=== PATIENT | female | born 1990 | race African-American/Black ===

== ENCOUNTER 2016-12-29 21:23 | Emergency (ER) | payer OTHER ==
[~2016-12-29] VITALS: Ht 167.6 cm; Wt 84.4 kg
[~2016-12-29 21:23] MED LIST: APAP500 PO; BACTRIM DS TAB1 EACH PO; CLEOCIN HCL150 MG PO; COLACE 100 MG100 MG; DEPO-SUBQ104 MG/0.6; FLAGYL500 MG PO; HIBICLENS120 ML TP; HYDROCODONE-AP1 EAC6 PO; IBUPROFEN 800800 M1; IROSPAN 24/6 T1 EACH; NAPROSYN500 MG PO; NOHOMEMEDICATIONS; NORCO 5-325 TA1 EACH PO; ONDANSETRON HCL4 M2 PO; PENICILLIN VK500 MG PO; PHENADOZ12.5 MG RC; PHENERGAN 25 MG25 M1 PO; PRENATAL PO; PRILOSEC 20 MG20 MG PO; PROMETHAZINE-C120 ML PO; TESSALON PERLE100 MG PO; TRINATE TABLET1 TAB PO; ZANTAC 150MG T150 MG PO; ZOFRAN ODT4 MG PO; ZOFRAN4 MG PO
[2016-12-29] MEDS ORDERED: PREDNISONE 20 M20 MG PO (22:17)
[2016-12-29] MEDS ORDERED: ACETAMINOPHEN-1 EAC1 PO (22:17)
[2016-12-29 22:51] VITALS: BP 130/76
== END 2016-12-29 22:55 | disposition home or self-care (01) ==
LOC: ER 21:23
DX: J20.9 Acute bronchitis, unspecified (principal); F12.90 Cannabis use, unspecified, uncomplicated; Z90.49 Acquired absence of other specified parts of digestive tract

== ENCOUNTER 2017-01-05 20:15 | Emergency (ER) | payer OTHER ==
[~2017-01-05] VITALS: Ht 167.6 cm; Wt 84.4 kg
[~2017-01-05 20:15] MED LIST changes: +ACETAMINOPHEN-1 EAC1 PO; +PREDNISONE 20 M20 MG PO
[2017-01-05 20:58] LABS: EOSINOPHILS 2.6 % (0.0-3.0); HEMATOCRIT 42.4 % (37.0-47.0); HEMOGLOBIN 14.4 gm/dL (12.0-15.0); LYMPHOCYTES 25.3 % (24.0-44.0); MCH 28.6 pg (26.0-34.0); MCHC 33.8 g/dL (28.0-37.0); MCV 84.5 fL (80.0-100.0); MONOCYTES 7.7 % (1.0-8.0); PLATELET COUNT 264 thou/uL (150-400); POLYS 63.4 % (36.0-66.0); RBC 5.02 mil/uL (4.20-5.00); RDW 13.8 % (10.5-14.5); WBC 6.4 thou/uL (4.0-11.0)
[2017-01-05 21:00] LABS: MANUAL DIFF NO
[2017-01-05 21:05] LABS: URINE BILIRUBIN NEGATIVE (Negative); URINE BLOOD TRACE (Negative); URINE COLOR YELLOW; URINE GLUCOSE-RANDOM* NEGATIVE (Negative); URINE KETONES TRACE (Negative); URINE NITRITE NEGATIVE (Negative); URINE PROTEIN (DIPSTICK) 1+ (Negative); URINE SPECIFIC GRAVITY >= 1.030 (1.003-1.035)
[2017-01-05 21:13] LABS: CALCIUM 9.2 mg/dL (8.5-10.1); CREATININE 0.6 mg/dL (0.6-1.0); POTASSIUM 3.5 mmol/L (3.5-5.1)
[2017-01-05 21:13] LABS: BACTERIA 1-9 Few /HPF (None Seen); CASTS None Seen /LPF (None Seen); CRYSTALS None Seen /LPF (None Seen); SQUAMOUS >10 Many /LPF (0-3); URINE RBC 0-2 Rare /HPF (0-2); URINE WBC 0-5 Rare /HPF (0-5)
[2017-01-05 21:18] LABS: ALBUMIN 4.3 g/dL (3.4-5.0); DIRECT BILIRUBIN 0.1 mg/dL (<0.1-0.3); TOTAL BILIRUBIN 0.4 mg/dL (<0.1-1.0)
[2017-01-05] MEDS ORDERED: ONDANSETRON HCL4 M2 PO (21:43)
[2017-01-05 22:00] VITALS: BP 136/83
== END 2017-01-05 22:07 | disposition home or self-care (01) ==
LOC: ER 20:15
PROVIDERS: Nurse Practitioner
DX: O21.9 Vomiting of pregnancy, unspecified (principal); F15.10 Other stimulant abuse, uncomplicated; Z3A.00 Weeks of gestation of pregnancy not specified; Z90.49 Acquired absence of other specified parts of digestive tract

== ENCOUNTER 2017-01-08 11:37 | Emergency (ER) | payer OTHER ==
[~2017-01-08] VITALS: Ht 160 cm; Wt 84.4 kg
[2017-01-08 12:04] LABS: BASOPHILS 0.4 % (0.0-2.0); EOSINOPHILS 0.9 % (0.0-3.0); HEMOGLOBIN 14.7 gm/dL (12.0-15.0); LYMPHOCYTES 17.4 % (24.0-44.0); MCH 28.8 pg (26.0-34.0); MCHC 34.1 g/dL (28.0-37.0); MCV 84.5 fL (80.0-100.0); PLATELET COUNT 262 thou/uL (150-400); POLYS 74.3 % (36.0-66.0); RBC 5.09 mil/uL (4.20-5.00); RDW 13.6 % (10.5-14.5); WBC 6.8 thou/uL (4.0-11.0)
[2017-01-08 12:07] LABS: MANUAL DIFF NO
[2017-01-08 12:14] LABS: CALCIUM 9.5 mg/dL (8.5-10.1); CREATININE 0.5 mg/dL (0.6-1.0); POTASSIUM 3.3 mmol/L (3.5-5.1)
[2017-01-08 12:18] LABS: ALBUMIN 4.5 g/dL (3.4-5.0); TOTAL BILIRUBIN 0.5 mg/dL (<0.1-1.0); TOTAL PROTEIN 8.6 g/dL (6.4-8.2)
[2017-01-08] MEDS ORDERED: PROMS25 WY RECTAL (13:09)
[2017-01-08] MEDS ORDERED: PHENERGAN 25 MG25 M1 PO (13:09)
[2017-01-08 15:10] VITALS: BP 117/70
== END 2017-01-08 15:11 | disposition home or self-care (01) ==
LOC: ER 11:37
PROVIDERS: Emergency Medicine
DX: O21.0 Mild hyperemesis gravidarum (principal); Z3A.00 Weeks of gestation of pregnancy not specified; Z90.49 Acquired absence of other specified parts of digestive tract

== ENCOUNTER 2017-01-12 15:15 | Emergency (ER) | payer OTHER ==
[~2017-01-12] VITALS: Ht 167.6 cm; Wt 78.9 kg
[~2017-01-12 15:15] MED LIST changes: +PROMS25 WY RECTAL
[2017-01-12 15:58] LABS: ABSOLUTE NEUTROPHILS 8.5 thou/uL (1.4-8.2); BASOPHILS 0.4 % (0.0-2.0); EOSINOPHILS 0.1 % (0.0-3.0); HEMATOCRIT 44.7 % (37.0-47.0); HEMOGLOBIN 15.6 gm/dL (12.0-15.0); LYMPHOCYTES 12.1 % (24.0-44.0); MCV 82.8 fL (80.0-100.0); MONOCYTES 6.5 % (1.0-8.0); PLATELET COUNT 292 thou/uL (150-400); POLYS 80.9 % (36.0-66.0); RDW 13.5 % (10.5-14.5); WBC 10.6 thou/uL (4.0-11.0)
[2017-01-12 16:01] LABS: MANUAL DIFF NO
[2017-01-12 16:04] LABS: CALCIUM 9.9 mg/dL (8.5-10.1); CREATININE 0.7 mg/dL (0.6-1.0); POTASSIUM 3.3 mmol/L (3.5-5.1)
[2017-01-12 19:50] VITALS: BP 135/83
== END 2017-01-12 19:50 | disposition short-term general hospital (02) ==
LOC: ER 15:15
PROVIDERS: Nurse Practitioner
DX: O21.0 Mild hyperemesis gravidarum (principal); E11.9 Type 2 diabetes mellitus without complications; Z3A.00 Weeks of gestation of pregnancy not specified; Z90.49 Acquired absence of other specified parts of digestive tract

== ENCOUNTER 2017-02-12 23:25 | Emergency (ER) | payer OTHER ==
[~2017-02-12] VITALS: Ht 167.6 cm; Wt 84.4 kg
[2017-02-12] MEDS ORDERED: PROMETHAZINE HC25 M1 (23:45)
[2017-02-13 00:12] LABS: URINE BILIRUBIN NEGATIVE (Negative); URINE BLOOD TRACE (Negative); URINE COLOR YELLOW; URINE GLUCOSE-RANDOM* NEGATIVE (Negative); URINE KETONES NEGATIVE (Negative); URINE LEUKOCYTES-REFLEX NEGATIVE (Negative); URINE PROTEIN (DIPSTICK) NEGATIVE (Negative); URINE SPECIFIC GRAVITY 1.025 (1.003-1.035); URINE UROBILINOGEN 0.2 E.U./dl (0.2-1.0)
[2017-02-13 01:49] LABS: ABSOLUTE NEUTROPHILS 5.3 thou/uL (1.4-8.2); BASOPHILS 0.5 % (0.0-2.0); EOSINOPHILS 1.3 % (0.0-3.0); HEMOGLOBIN 13.1 gm/dL (12.0-15.0); LYMPHOCYTES 24.2 % (24.0-44.0); MCH 28.6 pg (26.0-34.0); MCHC 33.5 g/dL (28.0-37.0); MCV 85.4 fL (80.0-100.0); MONOCYTES 6.6 % (1.0-8.0); PLATELET COUNT 250 thou/uL (150-400); POLYS 67.4 % (36.0-66.0); RBC 4.56 mil/uL (4.20-5.00); RDW 13.9 % (10.5-14.5); WBC 7.8 thou/uL (4.0-11.0)
[2017-02-13 01:54] LABS: MANUAL DIFF NO
[2017-02-13 01:59] LABS: CALCIUM 8.8 mg/dL (8.5-10.1); CREATININE 0.3 mg/dL (0.6-1.0); POTASSIUM 4.2 mmol/L (3.5-5.1)
[2017-02-13 02:04] LABS: ALBUMIN 3.3 g/dL (3.4-5.0); TOTAL BILIRUBIN 0.2 mg/dL (<0.1-1.0); TOTAL PROTEIN 6.8 g/dL (6.4-8.2)
[2017-02-13] MEDS ORDERED: PHENERGAN 25 MG25 M1 PO (02:13)
[2017-02-13 02:35] VITALS: BP 128/70
== END 2017-02-13 02:38 | disposition home or self-care (01) ==
LOC: ER 23:25
PROVIDERS: Emergency Medicine
DX: O21.0 Mild hyperemesis gravidarum (principal); F12.10 Cannabis abuse, uncomplicated; Z3A.11 11 weeks gestation of pregnancy; Z90.49 Acquired absence of other specified parts of digestive tract

== ENCOUNTER 2017-06-28 22:50 | Emergency (ER) | payer OTHER ==
[~2017-06-28] VITALS: Ht 165.1 cm; Wt 98.0 kg
[~2017-06-28 22:50] MED LIST changes: +PRENATAL PLUS1 EAC5 PO; +PROMETHAZINE HC25 M1; +ZPAK PO
[2017-06-28] MEDS ORDERED: PEPCID20 MG PO (22:57)
[2017-06-28 23:29] LABS: HEMATOCRIT 29.7 % (37.0-47.0); HEMOGLOBIN 9.6 gm/dL (12.0-15.0); MCH 24.5 pg (26.0-34.0); MCHC 32.5 g/dL (28.0-37.0); MCV 75.3 fL (80.0-100.0); RBC 3.94 mil/uL (4.20-5.00); RDW 14.8 % (10.5-14.5); WBC 7.1 thou/uL (4.0-11.0)
[2017-06-28 23:36] LABS: CALCIUM 8.6 mg/dL (8.5-10.1); CREATININE 0.4 mg/dL (0.6-1.0); POTASSIUM 3.2 mmol/L (3.5-5.1)
[2017-06-28 23:42] LABS: ALBUMIN 2.7 g/dL (3.4-5.0); TOTAL BILIRUBIN 0.4 mg/dL (<0.1-1.0); TOTAL PROTEIN 6.6 g/dL (6.4-8.2)
[2017-06-28 23:49] LABS: URINE BILIRUBIN NEGATIVE (Negative); URINE BLOOD NEGATIVE (Negative); URINE COLOR YELLOW; URINE GLUCOSE-RANDOM* NEGATIVE (Negative); URINE KETONES TRACE (Negative); URINE PROTEIN (DIPSTICK) TRACE (Negative); URINE UROBILINOGEN 0.2 E.U./dl (0.2-1.0)
[2017-06-28 23:55] LABS: URINE LEUKOCYTES-REFLEX 2+ (Negative)
[2017-06-29 00:08] LABS: CASTS None Seen /LPF (None Seen); CRYSTALS None Seen /LPF (None Seen); SQUAMOUS >10 Many /LPF (0-3); URINE RBC 0-2 Rare /HPF (0-2); URINE WBC-REFLEX 6-15 Few /HPF (0-5)
[2017-06-29 00:44] LABS: URINE BILIRUBIN NEGATIVE (Negative); URINE BLOOD NEGATIVE (Negative); URINE COLOR YELLOW; URINE GLUCOSE-RANDOM* NEGATIVE (Negative); URINE KETONES 2+ (Negative); URINE LEUKOCYTES-REFLEX NEGATIVE (Negative); URINE PROTEIN (DIPSTICK) TRACE (Negative); URINE SPECIFIC GRAVITY 1.025 (1.003-1.035); URINE UROBILINOGEN 0.2 E.U./dl (0.2-1.0)
[2017-06-29 01:03] VITALS: BP 142/79
== END 2017-06-29 01:06 | disposition home or self-care (01) ==
LOC: ER 22:50
PROVIDERS: Emergency Medicine
DX: O21.9 Vomiting of pregnancy, unspecified (principal); Z3A.30 30 weeks gestation of pregnancy; Z90.49 Acquired absence of other specified parts of digestive tract

== ENCOUNTER 2018-07-22 21:09 | Emergency (ER) | payer OTHER ==
[~2018-07-22] VITALS: Ht 165.1 cm; Wt 102.1 kg
[~2018-07-22 21:09] MED LIST changes: +PEPCID20 MG PO
[2018-07-22] MEDS ORDERED: NORVASC5 MG PO (21:24)
[2018-07-22] MEDS ORDERED: LABETALOL HCL100 MG PO (21:24)
[2018-07-22] MEDS ORDERED: DICLEGIS DR 101 EACH PO (21:25)
[2018-07-22 22:37] VITALS: BP 139/74
== END 2018-07-22 22:38 | disposition home or self-care (01) ==
LOC: ER 21:09
DX: O26.892 Other specified pregnancy related conditions, second trimester (principal); N90.89 Other specified noninflammatory disorders of vulva and perineum; I10 Essential (primary) hypertension; Z90.49 Acquired absence of other specified parts of digestive tract; Z3A.26 26 weeks gestation of pregnancy

== ENCOUNTER 2018-07-31 16:40 | Emergency (ER) | payer OTHER ==
[~2018-07-31] VITALS: Ht 165.1 cm; Wt 102.1 kg
[~2018-07-31 16:40] MED LIST changes: +DICLEGIS DR 101 EACH PO; +LABETALOL HCL100 MG PO; +NORVASC5 MG PO
[2018-07-31] MEDS ORDERED: ZANTAC 150MG T150 MG PO (16:51)
[2018-07-31] MEDS ORDERED: FLONASE 0.05%50 MCG NASAL (17:12)
[2018-07-31 17:29] VITALS: BP 140/84
== END 2018-07-31 17:20 | disposition home or self-care (01) ==
LOC: ER 16:40
DX: O99.512 Diseases of the respiratory system complicating pregnancy, second trimester (principal); J02.9 Acute pharyngitis, unspecified; J06.9 Acute upper respiratory infection, unspecified; I10 Essential (primary) hypertension; Z3A.27 27 weeks gestation of pregnancy; Z90.49 Acquired absence of other specified parts of digestive tract

== ENCOUNTER 2021-09-25 23:02 | Emergency (ER) | payer OTHER ==
[~2021-09-25] VITALS: Ht 170.2 cm; Wt 81.7 kg
[~2021-09-25 23:02] MED LIST changes: +FLONASE 0.05%50 MCG NASAL
[2021-09-25 23:51] LABS: URINE BILIRUBIN NEGATIVE (Negative); URINE BLOOD TRACE (Negative); URINE CLARITY CLEAR; URINE COLOR YELLOW; URINE GLUCOSE-RANDOM* NEGATIVE (Negative); URINE KETONES NEGATIVE (Negative); URINE LEUKOCYTES-REFLEX NEGATIVE (Negative); URINE NITRITE-REFLEX NEGATIVE (Negative); URINE PROTEIN (DIPSTICK) NEGATIVE (Negative); URINE SPECIFIC GRAVITY >= 1.030 (1.005-1.035); URINE UROBILINOGEN 0.2 E.U./dl (0.2-1.0)
[2021-09-25 23:58] LABS: ABSOLUTE NEUTROPHILS 1.9 thou/uL (1.4-8.2); BASOPHILS 1.2 % (0.0-2.0); EOSINOPHILS 0.9 % (0.0-3.0); HEMATOCRIT 36.8 % (37.0-47.0); LYMPHOCYTES 42.3 % (24.0-44.0); MCH 27.1 pg (26.0-34.0); MCHC 32.6 g/dL (28.0-37.0); MCV 83.2 fL (80.0-100.0); MONOCYTES 7.4 % (1.0-8.0); PLATELET COUNT 240 thou/uL (150-400); POLYS 48.2 % (36.0-66.0); RBC 4.43 mil/uL (4.20-5.00); RDW 14.9 % (10.5-14.5); WBC 3.9 thou/uL (4.0-11.0)
[2021-09-26 00:20] LABS: ANION GAP 10 mmol/L (7-16); BUN 9 mg/dL (7-18); CALCIUM 8.5 mg/dL (8.5-10.1); CHLORIDE 104 mmol/L (98-107); CO2 27 mmol/L (21-32); CREATININE 0.7 mg/dL (0.6-1.0); GLUCOSE 91 mg/dL (74-106); POTASSIUM 3.5 mmol/L (3.5-5.1); SODIUM 141 mmol/L (136-145)
[2021-09-26 00:27] LABS: DIRECT BILIRUBIN < 0.1 mg/dL (<0.1-0.2); LIPASE 201 U/L (73-393); SGOT 18 U/L (15-37); SGPT 15 U/L (30-65); TOTAL BILIRUBIN 0.6 mg/dL (0.2-1.0); TOTAL PROTEIN 7.5 g/dL (6.4-8.2)
[2021-09-26 02:22] VITALS: BP 170/102
== END 2021-09-26 01:55 | disposition home or self-care (01) ==
LOC: ER 23:02
PROVIDERS: Student in an Organized Health Care Education/Training Program
DX: R10.9 Unspecified abdominal pain (principal); I10 Essential (primary) hypertension; R30.0 Dysuria; Z90.49 Acquired absence of other specified parts of digestive tract